=== PATIENT | female | born 1975 | race Caucasian/White ===

== ENCOUNTER → 2022-04-28 13:54 | Outpatient (BNVA) | payer MEDICAID, SELFPAY | PROVIDERS: PCP Nurse Practitioner Family; Visit Provider Urology | DX: N32.81 Overactive bladder (principal); E28.2 Polycystic ovarian syndrome; E66.9 Obesity, unspecified | CPT/HCPCS: 99202 ==

== ENCOUNTER 2022-07-06 13:11 | Outpatient (REF) | payer OTHER, SELFPAY ==
[2022-07-06 15:09] LABS: TSH reflex Free T4 2.75 uIU/mL (0.32-4.0)
== END 2022-07-06 13:12 | disposition home or self-care (01) ==
LOC: HO.LAB 13:11
PROVIDERS: PCP Nurse Practitioner Family; Visit Provider Obstetrics & Gynecology
DX: F32.81 Premenstrual dysphoric disorder (principal)
CPT/HCPCS: 36415; 84443; 99202

== ENCOUNTER 2022-09-21 11:10 | Outpatient (AMB) | payer OTHER, SELFPAY ==
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
[2022-09-21 11:13] VITALS: BP 120/80; BMI 42.7
== END 2022-09-21 11:59 | disposition home or self-care (01) ==
LOC: HO.HWS 11:10
PROVIDERS: PCP Nurse Practitioner Family; Visit Provider Obstetrics & Gynecology
DX: F32.81 Premenstrual dysphoric disorder (principal)
CPT/HCPCS: 99213

== ENCOUNTER → 2022-09-21 11:10 | Outpatient (BNVA) | payer OTHER, SELFPAY | PROVIDERS: PCP Nurse Practitioner Family; Visit Provider Obstetrics & Gynecology | DX: F32.81 Premenstrual dysphoric disorder (principal) | CPT/HCPCS: 99212 ==